=== PATIENT | male | born 1980 | race Caucasian/White ===

== ENCOUNTER 2017-03-14 01:40 | Inpatient (IN) | payer BC ==
[2017-03-14 02:24] LABS: #Basophils 0.1 thou/uL (0.0-0.2); #Eosinphils 0.1 thou/uL (0.0-0.7); #Lymphocytes 1.6 thou/uL (1.20-3.40); #Monocytes 0.6 thou/uL (0.11-0.59); #Neutrophils 5.9 thou/uL (1.40-6.50); %Basophils 1.1 % (0.0-1.0); %Eosinophils 1.7 % (0.0-10.0); %Lymphocytes 19.4 % (21.0-51.0); %Monocytes 7.5 % (0.0-10.0); %Neutrophils 70.3 % (42.0-75.0); Hemoglobin 14.6 g/dL (14.0-18.0); Mean Corpuscular HGB CONC 32.4 g/dL (32.0-36.0); Mean Corpuscular Hemoglobin 29.3 pg (27.0-31.0); Mean Corpuscular Volume 90.4 fl (80.0-94.0); Mean Platelet Volume 8.9 fL (7.4-10.4); Platelet Count 161 thou/uL (130-400); RBC Distribution Width 10.6 % (11.5-14.5); Red Blood Cell (RBC) Count 4.97 mill/uL (4.70-6.10); White Blood Cell (WBC) Count 8.4 thou/uL (4.8-10.8)
[2017-03-14 02:36] LABS: Anion Gap 14 mmol/L (10-20); BUN (Urea Nitrogen) 16 mg/dL (8.9-20.6); Calc. Creatinine Clearance 0 mL/min (70-130); Calcium 9.7 mg/dL (7.8-10.44); Carbon Dioxide 25 mmol/L (22-29); Chloride 102 mmol/L (98-107); Estimated GFR-MDRD 55; Glucose 115 mg/dL (70-105); Potassium 4.3 mmol/L (3.5-5.1); Sodium 137 mmol/L (136-145)
[2017-03-14] MEDS ORDERED: Sodium Chloride 0.9% 100 ML ONE (03:05)
[2017-03-14] MEDS ORDERED: Piperacillin/Tazobactam 3.375 GM VIAL ONE (03:05)
[2017-03-14 05:07] VITALS: BMI 27.1
[2017-03-14] MEDS ORDERED: Ondansetron HCl/PF 4 MG/2 ML Vial IVP PRN (05:15)
[2017-03-14] MEDS: Dextrose 5 %-0.45 % NaCl 1,000 ML IV SCH ×2 (06:05→15:28)
[2017-03-14] MEDS ORDERED: Dexamethasone 10 MG/ML VIAL SLOW IVP SCH (09:00)
[2017-03-14] MEDS: Piperacillin/Tazobactam 3.375 GM in Sodium Chloride 0.9% 100 ML IVPB SCH ×2 (09:16→15:00)
--- NOTE | 2017-03-14 10:29 | CT ---
PRELIMINARY REPORT/[facility]/EMERGENCY AFTER HOURS PROCEDURE: EXAM: CT Neck With Intravenous Contrast CLINICAL HISTORY: 37 years old, male; Pain and signs and symptoms; Dysphagia / difficulty swallowing; Painful swallowin g; Patient HX: Sore throat, fever, dx with flu yesterday TECHNIQUE: Axial computed tomography images of the neck with intravenous contrast. All CT scans at this facility use one or more dose reduction techniques, viz.: automated exposure control; ma/kV adjustment per pa tient size (including targeted exams where dose is matched to indication; i.e. head); or iterative r econstruction technique. Coronal and sagittal reformatted images were created and reviewed. CONTRAST: 90 mL of isovue 370 administered intravenously. COMPARISON: No relevant prior studies available. FINDINGS: Nasopharynx: Normal. Oropharynx: Normal. No significant tonsillar enlargement. No peritonsillar abscess. Hypopharynx: Heterogeneous enlarged hypopharyngeal soft tissues, with a few small low attenuation are as, possibly fluid and/or phlegmon/developing abscesses. Larynx: Bilateral enlarged, edematous-appearing false vocal cords. Normal epiglottis. Trachea: Normal. Retropharyngeal space: No retropharyngeal abscess. Submandibular/parotid glands: Normal. Glands are normal in size. Thyroid: Normal. No enlarged or calcified nodules. Bones/joints: No acute fracture. Soft tissues: See above. Vasculature: Normal. Lymph nodes: Normal. Lung apices: Normal as visualized. IMPRESSION: 1. Infection/inflammation of the hypopharyngeal soft tissues and false vocal cords. Small low attenua tion areas within the hypopharyngeal soft tissues, possibly fluid and/or phlegmon/evolving abscesses. 2. Incidental/non-acute findings are described above. Thank you for allowing us to participate in the care of your patient. Dictated and Authenticated by: Collin Burgess MD 03/14/2017 3:34 AM Central Time ([place] & [place]) FINAL REPORT POST CONTRAST SOFT TISSUE NECK CT: HISTORY: Sore throat. Difficulty swallowing. The patient was diagnosed with the flu yesterday. Evaluate for a peritonsillar abscess. COMPARISON: None. TECHNIQUE: Post contrast soft tissue neck CT is performed in the axial plane. Reformatted images are submitted for interpretation. FINDINGS: There is edematous change and enlargement involving the left and right false vocal cords. The epiglo ttis has a normal caliber. Pre-epiglottic fat is preserved. Mild edematous change is also noted in the subglottic larynx. There is no evidence of a peritonsillar abscess. No evidence of a well defin ed soft tissue abscess at this time. Phlegmonous change is favored. Continued surveillance is recom mended to exclude a developing abscess. This report is in agreement with a preliminary report by [id number]. POS: [facility]
[2017-03-14 12:39] VITALS: BP 152/76; TEMP 98.2
[2017-03-14] MEDS ORDERED: Iopamidol 370 76% 100 ML VIAL ONE (16:53)
== END 2017-03-14 18:11 | disposition home or self-care (01) | DRG 153 ==
LOC: SCSER 01:40 → SURG A 04:30
PROVIDERS: ADMIT Specialist; ATTEND Specialist
DX: J02.9 Acute pharyngitis, unspecified (principal); J34.3 Hypertrophy of nasal turbinates
CPT/HCPCS: 70491; 80048; 85025; 87081; 87430; 96361; 96365; J1100; J2543; J7050